=== PATIENT | male | born 1995 | race Two or more races ===

== ENCOUNTER 2025-03-19 07:07 | Emergency (ER) | payer OTHER ==
[~2025-03-19] VITALS: Ht 165.1 cm; Wt 72.6 kg
[2025-03-19] MEDS ORDERED: GUAIFENESIN 200 MG/10 ML BLIST.PACK PO ONE (08:30)
[2025-03-19] MEDS ORDERED: KETOROLAC TROMETHAMINE 30 MG VIAL IM ONE (08:30)
[2025-03-19 09:21] LABS: BASO % 0.2 % (0.1-1.2); EOS # 0.07 (0.04-0.54); EOS % 0.7 % (0.7-7.0); LYMPH # 0.63 (1.18-3.74); LYMPH % 6.1 % (19.3-53.1); MEAN PLATELET VOLUME 10.90 fl (9.4-12.4); MONO # 0.89 (0.24-0.82); MONO % 8.6 % (4.7-12.5); NEUT # 8.73 (1.56-6.13); NEUT % 84.0 % (34.0-71.1); RED CELL DISTRIBUTION WIDTH 13.8 % (11.6-14.4)
[2025-03-19 09:43] LABS: COVID-19 AG POSITIVE (NEGATIVE)
== END 2025-03-19 11:08 | disposition home or self-care (01) ==
LOC: ER 07:19
PROVIDERS: General Practice
DX: U07.1 COVID-19 (principal)

== ENCOUNTER 2025-06-04 21:49 | Emergency (ER) | payer OTHER ==
[~2025-06-04] VITALS: Ht 165.1 cm; Wt 72.6 kg
[2025-06-04] MEDS ORDERED: FAMOTIDINE/PF 20 MG/2 ML VIAL IV PUSH STA (23:22)
[2025-06-04] MEDS ORDERED: PROMETHAZINE HCL 50 MG/ML AMPUL IM STA (23:22)
[2025-06-04] MEDS ORDERED: 0.9 % SODIUM CHLORIDE 1,000 ML IV ONE (23:30)
[2025-06-05] MEDS ORDERED: FAMOTIDINE/PF 20 MG/2 ML VIAL ONE (00:14)
[2025-06-05] MEDS ORDERED: PROMETHAZINE HCL 50 MG/ML AMPUL IM ONE (00:14)
[2025-06-05 00:22] LABS: BASO % 0.2 % (0.1-1.2)
[2025-06-05 00:24] LABS: EOS # 0.03 (0.04-0.54); EOS % 0.3 % (0.7-7.0); LYMPH # 1.87 (1.18-3.74); LYMPH % 20.5 % (19.3-53.1); MEAN PLATELET VOLUME 10.60 fl (9.4-12.4); MONO # 0.97 (0.24-0.82); MONO % 10.6 % (4.7-12.5); NEUT # 6.22 (1.56-6.13); NEUT % 68.1 % (34.0-71.1); RED CELL DISTRIBUTION WIDTH 13.1 % (11.6-14.4)
[2025-06-05 00:46] LABS: ALT/SGPT 21.0 U/L (12-78); AST/SGOT 11.0 U/L (15-37); BILIRUBIN TOTAL 0.51 mg/dL (0.3-1.2); BUN CREA RATIO 21.0 (7.0-25.0); CREATININE SERUM 0.66 mg/dL (0.70-1.30); GFR 141.72; GLOBULINA 3.6 G/DL (2.4-3.5); GLUCOSE FASTING 109.0 mg/dL (65-100); OSMOLALITY SERUM 280.0 MOSM/KG (275-295)
[2025-06-05 00:50] LABS: LYMPHOCYTE MAN 21.0 %; NEUTROPHILS MAN 71.0 %
[2025-06-05 00:51] LABS: MONOCYTE MAN 4.0 %
[2025-06-05 01:38] LABS: COVID-19 AG NEGATIVE (NEGATIVE)
[2025-06-05] MEDS ORDERED: ZOFRAN8 MG PO (05:50)
[2025-06-05] MEDS ORDERED: PEPCID40 MG PO (05:50)
== END 2025-06-05 06:10 ==
LOC: ER 21:50
PROVIDERS: General Practice
DX: R11.10 Vomiting, unspecified (principal); E86.0 Dehydration; R50.9 Fever, unspecified; Z20.822 Contact with and (suspected) exposure to COVID-19

== ENCOUNTER 2025-06-19 15:47 | Emergency (ER) | payer OTHER ==
[~2025-06-19] VITALS: Ht 165.1 cm; Wt 72.6 kg
[~2025-06-19 15:47] MED LIST: PEPCID40 MG PO; ZOFRAN8 MG PO
[2025-06-19] MEDS ORDERED: BENZONATATE 100 MG CAPSULE PO ONE (18:15)
[2025-06-19] MEDS ORDERED: GUAIFENESIN 200 MG/10 ML BLIST.PACK PO ONE ×2 (18:15→18:18)
[2025-06-19] MEDS ORDERED: METOCLOPRAMIDE HCL 5 MG/ML VIAL IM ONE (18:15)
[2025-06-19] MEDS ORDERED: ACETAMINOPHEN 500 MG GEL..CAP PO ONE ×2 (18:15→18:17)
[2025-06-19] MEDS ORDERED: METOCLOPRAMIDE HCL 5 MG/ML VIAL ONE (18:18)
[2025-06-19 19:16] LABS: BASO % 0.4 % (0.1-1.2); EOS # 0.06 (0.04-0.54); EOS % 0.5 % (0.7-7.0); LYMPH # 2.32 (1.18-3.74); LYMPH % 20.7 % (19.3-53.1); MEAN PLATELET VOLUME 11.80 fl (9.4-12.4); MONO # 0.92 (0.24-0.82); MONO % 8.2 % (4.7-12.5); NEUT # 7.83 (1.56-6.13); NEUT % 69.9 % (34.0-71.1); RED CELL DISTRIBUTION WIDTH 13.9 % (11.6-14.4)
[2025-06-19 19:27] LABS: BUN CREA RATIO 27.0 (7.0-25.0); CREATININE SERUM 0.64 mg/dL (0.70-1.30); GFR 146.84; GLUCOSE FASTING 109.0 mg/dL (65-100); OSMOLALITY SERUM 282.0 MOSM/KG (275-295)
[2025-06-19 19:51] LABS: COVID-19 AG NEGATIVE (NEGATIVE)
== END 2025-06-19 23:02 | disposition home or self-care (01) ==
LOC: ER 15:47
PROVIDERS: General Practice
DX: B34.9 Viral infection, unspecified (principal); R05.9 Cough, unspecified; R11.2 Nausea with vomiting, unspecified; Z20.822 Contact with and (suspected) exposure to COVID-19